=== PATIENT | female | born 1990 | race Two or more races ===

== ENCOUNTER 2022-01-28 12:15 | Inpatient (IN) | payer OTHER ==
[~2022-01-28] VITALS: Ht 160 cm; Wt 67.1 kg
[2022-02-09] MEDS ORDERED: PRENATAL 19 CH1 EAC1 PO (12:45)
[2022-02-09] MEDS ORDERED: VALTREX1000 MG PO (12:45)
[2022-02-09] MEDS ORDERED: MAGNESIUM500 MG PO (12:46)
== END 2022-02-11 16:53 | disposition home or self-care (01) | DRG 807 ==
LOC: LDR 02-09 05:20 → SURG-SUITE 02-09 20:15 → SURH 02-11 12:15 → SURG-SUITE 02-11 16:53
PROVIDERS: ADMIT Obstetrics & Gynecology; ATTEND Obstetrics & Gynecology
PROC: 10E0XZZ Delivery of Products of Conception, External Approach (ICD-10-PCS; principal; 2022-02-09)
PROC: 0KQM0ZZ Repair Perineum Muscle, Open Approach (ICD-10-PCS; 2022-02-09)
PROC: 4A1HXCZ Monitoring of Products of Conception, Cardiac Rate, External Approach (ICD-10-PCS; 2022-02-09)
DX: O70.1 Second degree perineal laceration during delivery (principal); Z37.0 Single live birth; Z3A.39 39 weeks gestation of pregnancy; Z20.822 Contact with and (suspected) exposure to COVID-19

== ENCOUNTER 2025-02-19 16:13 | Outpatient (CLI) | payer OTHER ==
[~2025-02-19 16:13] MED LIST: MAGNESIUM500 MG PO; PRENATAL 19 CH1 EAC1 PO; VALTREX1000 MG PO
== END 2025-02-19 16:23 | disposition home or self-care (01) ==
LOC: NST 16:13
PROVIDERS: ATTEND Obstetrics & Gynecology
DX: Z3A.38 38 weeks gestation of pregnancy (principal)